=== PATIENT | male | born 2000 ===

== ENCOUNTER 2021-02-23 10:20 | Emergency (ER) | payer OTHER ==
--- NOTE | 2021-02-23 10:38 | EDM.PDOC ---
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 He states the needle was small and was not attached to a syringe. He does not know if the need le was new/clean, or used and dirty. Denies any other injury. He states the needle did not penetrate deep into his hand, but was just deep enough to cause a drop of blood. Pt denies any PMHx, or Hx of previous exposure to HIV or hepatitis. Pt states his last Tetanus vaccine was when he was in the 8th grade. Onset: Today Location: Reports: Upper Extremity, Right Quality: Reports: Other (Denies pain) Improves with: Reports: None Worsens with: Reports: None Associated Symptoms: Reports: No Other Symptoms - Related Data Allergies Allergy/AdvReac Type Severity Reaction Status Date / Time azithromycin Allergy Intermediate Hives Verified 02/23/21 10:39 Past Medical History - Past Health History Medical/Surgical History: Denies Medical/Surgical History Social & Family History - Family History Family Medical History: No Pertinent Family History - Living Situation & Occupation Occupation: Employed ED ROS GENERAL - Review of Systems Review Of Systems: Comprehensive ROS is negative, except as noted in HPI. ED EXAM, GENERAL - Physical Exam Exam: See Below Exam Limited By: No Limitations General Appearance: Alert, WD/WN, No Apparent Distress Eye Exam: Bilateral Eye: Normal Inspection Throat/Mouth: Normal Voice, No Airway Compromise Head: Atraumatic, Normocephalic Respiratory/Chest: No Respiratory Distress Extremities: Normal Range of Motion, Non-Tender, Normal Capillary Refill, Other (Tiny puncture wound to palm of right hand, no FB, no erythema.). No: Increased Warmth, Mottled, Pallor, Redness Neurological: Alert, Oriented, No Motor/Sensory Deficits Psychiatric: Normal Affect, Normal Mood Skin Exam: Warm, Dry, Normal Color Course - Vital Signs Last Recorded V/S: Last Vital Signs Temp 99.2 F 02/23/21 10:39 Pulse 64 02/23/21 10:39 Resp 16 02/23/21 10:39 BP 141/61 H 02/23/21 10:39 Pulse Ox 96 02/23/21 10:39 - Orders/Labs/Meds Orders: Active Orders 24 hr Category Date Time Status Vaccine to be Administered/Admin Charge [RC] ASDIRECTED Care 02/23/21 10:41 Active HEPATITIS PANEL (4) [REF] Routine Lab 02/23/21 10:42 Ordered HIV RAPID [REF] Routine Lab 02/23/21 10:41 Ordered Meds: Medications Discontinued Medications Generic Name Dose Route Start Last Admin Trade Name Freq PRN Reason Stop Dose Admin Diphtheria/Tetanus/Acell Pertussis 0.5 ml 02/23/21 10:40 02/23/21 10:53 Diphtheria,Pertussis(Acell),Tetanus Vaccine 0.5 Ml Syringe IM 02/23/21 10:41 0.5 ml .ONCE ONE Administration - Re-Assessments/Exams Free Text/Narrative Re-Assessment/Exam: 02/23/21 Discussed HIV prophylaxis medications, pt declines. TDAP is given. Departure - Departure Time of Disposition: 11:00 Disposition: Home, Self-Care 01 Condition: Good Clinical Impression: Needle stick injury, Work related injury Puncture wound of right hand Qualifiers: Encounter type: initial encounter Foreign body presence: without foreign body Qualified Code(s): S61.431A - Puncture wound without foreign body of right hand, initial encounter - Discharge Information *PRESCRIPTION DRUG MONITORING PROGRAM REVIEWED*: Not Applicable *COPY OF PRESCRIPTION DRUG MONITORING REPORT IN PATIENT RANDI: Not Applicable Instructions: Needlestick and Sharps Injury, [id number] Forms: ED Department Discharge Additional Instructions: Your Tetanus Vaccine was updated today (02/23/21). Follow up with your primary clinic for repeat HIV and Hepatitis screening labs in 60 days and again in 6 months. Sepsis Event Note (ED) - Focused Exam Vital Signs: Vital Signs Temp Pulse Resp BP Pulse Ox 02/23/21 10:39 99.2 F 64 16 141/61 H 96 - My Orders Last 24 Hours: My Active Orders 02/23/21 10:41 Vaccine to be Administered/Admin Charge [RC] ASDIRECTED HIV RAPID [REF] Routine 02/23/21 10:42 HEPATITIS PANEL (4) [REF] Routine - Assessment/Plan Last 24 Hours: My Active Orders 02/23/21 10:41 Vaccine to be Administered/Admin Charge [RC] ASDIRECTED HIV RAPID [REF] Routine 02/23/21 10:42 HEPATITIS PANEL (4) [REF] Routine
[2021-02-23] MEDS ORDERED: Diphtheria,Pertussis(Acell),Tetanus Vaccine 0.5 ML Syringe IM ONE (10:40)
== END 2021-02-23 11:21 | disposition home or self-care (01) ==
LOC: DL.ED 10:20
DX: S61.431A Puncture wound without foreign body of right hand, initial encounter (principal); Z88.1 Allergy status to other antibiotic agents; Z23 Encounter for immunization; W27.3XXA Contact with needle (sewing), initial encounter
CPT/HCPCS: 36415; 86803; 87340; 87389; 90471; 90715; 99283

== ENCOUNTER 2023-04-11 16:03 | Emergency (ER) | payer OTHER | END 2023-04-11 17:45 | disposition home or self-care (01) | LOC: DL.ED 16:03 | DX: S52.612A Displaced fracture of left ulna styloid process, initial encounter for closed fracture (principal); Z88.1 Allergy status to other antibiotic agents; W01.0XXA Fall on same level from slipping, tripping and stumbling without subsequent striking against object, initial encounter | CPT/HCPCS: 29125; 73090-LT; 73110-LT; 99283; 99284 ==

== ENCOUNTER 2023-12-21 08:38 | Emergency (ER) | payer BC ==
[2023-12-21] MEDS: Lidocaine 1% 30 ML SDV INJECT ONE (09:22)
[2023-12-21] MEDS: Cephalexin 500 MG Cap PO ONE (09:39)
[2023-12-21] MEDS: Bacitracin Oint 1 GM U/D Packet TOP ONE (09:39)
== END 2023-12-21 09:55 | disposition home or self-care (01) ==
LOC: DL.ED 08:38
DX: S62.662B Nondisplaced fracture of distal phalanx of right middle finger, initial encounter for open fracture (principal); S62.664B Nondisplaced fracture of distal phalanx of right ring finger, initial encounter for open fracture; Z88.1 Allergy status to other antibiotic agents; Z91.038 Other insect allergy status; W21.89XA Striking against or struck by other sports equipment, initial encounter; Y93.B3 Activity, free weights
CPT/HCPCS: 12002; 73140; 99283; A9270; J3490